=== PATIENT | female | born 1970 | race Two or more races ===

== ENCOUNTER → 2021-06-18 | Outpatient (CLI) | payer OTHER ==
--- NOTE | 2021-06-18 11:41 | KCIC ---
Single view of the chest. 06/18/2021 11:18 AM Indication: Reason: POSITIVE TB REACTOR Comparison: None Findings: There is no focal consolidation. There is no pleural effusion or pneumothorax. The cardiome diastinal silhouette and pulmonary vasculature are within normal limits. No acute osseous abnormaliti es are seen. Impression: No evidence of acute cardiopulmonary process. Electronically signed by: Rm Self MD (06/18/2021 11:39 AM) [id number]
== END ==
LOC: KCIC 11:05
PROVIDERS: ATTEND Internal Medicine Pulmonary Disease
DX: R76.11 Nonspecific reaction to tuberculin skin test without active tuberculosis (principal)
CPT/HCPCS: 71045